=== PATIENT | female | born 1995 | race Caucasian/White ===

== ENCOUNTER 2020-01-19 18:32 | Outpatient (CLI) | payer OTHER, MEDICAID ==
[2020-01-19 19:16] LABS: APPEARANCE,URINE SLIGHTLY-CLOUDY; BILIRUBIN,URINE NEGATIVE (NEGATIVE); COLOR,URINE YELLOW; GLUCOSE, URINE NEGATIVE (NEGATIVE); KETONES,URINE NEGATIVE (NEGATIVE); LEUKOCYTE ESTERASE,URINE NEGATIVE (NEGATIVE); NITRITE,URINE NEGATIVE (NEGATIVE); PROTEIN,URINE NEGATIVE (NEGATIVE); URINE SPECIFIC GRAVITY 1.018; UROBILINOGEN,URINE NEGATIVE mg/dL (<2.0)
[2020-01-19 19:34] LABS: URINE AMPHETAMINES SCREEN NEGATIVE; URINE BARBITURATES SCREEN NEGATIVE; URINE BENZODIAZEPINES SCREEN NEGATIVE; URINE COCAINE SCREEN NEGATIVE; URINE MARIJUANA (THC) SCREEN NEGATIVE; URINE METHADONE SCREEN NEGATIVE; URINE PHENCYCLIDINE SCREEN NEGATIVE
--- NOTE | 2020-01-19 20:21 | Non Stress Test Report ---
Non Stress Test Datetime Report Generated by CPN: 01/19/2020 20:21 DEMOGRAPHIC EGA NST: 39.6 INDICATION Indication for Study (NST) Other: labor check URINE RESULTS Urine Protein, NST: Negative Urine Ketones - NST: Negative Urine Glucose - NST: Negative Urine Blood - NST: Positive MONITORING Monitor Explained: Monitor Explained; Test Explained; Patient Verbalized Understanding Time on Monitor: 01/19/2020 18:58 Time off Monitor: 01/19/2020 19:57 NST Duration: 59 NST INTERVENTIONS NST Interventions: PO Hydration Physician Notified NST: Higgins BABY A: [id number] BABY A Movement : Present Contraction Frequency : irregular FHR Baseline : 135 Accelerations : 15X15 Decelerations : None Variability : Moderate 6-25bpm NST Review: Meets Criteria for Reactive NST NST Review and Verified By : Elis Gaona RN NST Results: Reactive NST REPORT Report Trigger: Send Report
== END 2020-01-19 20:07 | disposition home or self-care (01) ==
LOC: LC 18:32
PROVIDERS: ATTEND Obstetrics & Gynecology
DX: O47.1 False labor at or after 37 completed weeks of gestation (principal); Z3A.39 39 weeks gestation of pregnancy
CPT/HCPCS: 59025; 80307; 81005; 84112

== ENCOUNTER 2020-01-24 01:28 | Outpatient (CLI) | payer OTHER, MEDICAID ==
[2020-01-24 02:22] LABS: APPEARANCE,URINE CLEAR; BILIRUBIN,URINE NEGATIVE (NEGATIVE); COLOR,URINE YELLOW; GLUCOSE, URINE NEGATIVE (NEGATIVE); KETONES,URINE NEGATIVE (NEGATIVE); LEUKOCYTE ESTERASE,URINE TRACE (NEGATIVE); NITRITE,URINE NEGATIVE (NEGATIVE); PROTEIN,URINE NEGATIVE (NEGATIVE); URINE SPECIFIC GRAVITY 1.015; UROBILINOGEN,URINE NEGATIVE mg/dL (<2.0)
[2020-01-24 02:48] LABS: URINE AMPHETAMINES SCREEN NEGATIVE; URINE BARBITURATES SCREEN NEGATIVE; URINE BENZODIAZEPINES SCREEN NEGATIVE; URINE COCAINE SCREEN NEGATIVE; URINE MARIJUANA (THC) SCREEN NEGATIVE; URINE METHADONE SCREEN NEGATIVE; URINE PHENCYCLIDINE SCREEN NEGATIVE
== END 2020-01-24 03:00 | disposition home or self-care (01) ==
LOC: LC 01:28
PROVIDERS: ATTEND Obstetrics & Gynecology
DX: O47.1 False labor at or after 37 completed weeks of gestation (principal); Z3A.40 40 weeks gestation of pregnancy
CPT/HCPCS: 59025; 80307; 81005; 84112

== ENCOUNTER 2020-01-25 13:30 | Inpatient (IN) | payer OTHER, MEDICAID ==
--- NOTE | 2020-01-25 13:42 | Non Stress Test Report ---
Non Stress Test Datetime Report Generated by CPN: 01/25/2020 13:42 DEMOGRAPHIC EGA NST: 40.4 INDICATION Indication for Study (NST) Other: Gestational age greater than 32 weeks VITAL SIGNS Temperature - NST: 97.0 Pulse - NST: 76 RESP - NST: 17 NBPSYS NST: 116 NBPDIA NST: 59 URINE RESULTS Urine Protein, NST: Negative Urine Ketones - NST: Negative Urine Glucose - NST: Negative Urine Blood - NST: Positive MONITORING Monitor Explained: Monitor Explained; Test Explained; Patient Verbalized Understanding Time on Monitor: 01/24/2020 01:49 Time off Monitor: 01/24/2020 02:54 NST Duration: 65 NST INTERVENTIONS NST Interventions: PO Hydration; Reposition Patient Physician Notified NST: Dr. Hutchins BABY A: [id number] BABY A Movement : Present Contraction Frequency : 6-9 FHR Baseline : 125 Accelerations : 15X15 Decelerations : None Variability : Moderate 6-25bpm NST Review: Meets Criteria for Reactive NST NST Review and Verified By : Vee Posadas RN NST Results: Reactive NST REPORT Report Trigger: Send Report
[2020-01-25 14:26] LABS: APPEARANCE,URINE CLOUDY; BILIRUBIN,URINE NEGATIVE (NEGATIVE); COLOR,URINE YELLOW; GLUCOSE, URINE NEGATIVE (NEGATIVE); KETONES,URINE NEGATIVE (NEGATIVE); LEUKOCYTE ESTERASE,URINE LARGE (NEGATIVE); NITRITE,URINE NEGATIVE (NEGATIVE); PROTEIN,URINE 30 mg/dL (NEGATIVE); URINE SPECIFIC GRAVITY 1.024; UROBILINOGEN,URINE NEGATIVE mg/dL (<2.0)
[2020-01-25 14:48] LABS: URINE AMPHETAMINES SCREEN NEGATIVE; URINE BARBITURATES SCREEN NEGATIVE; URINE BENZODIAZEPINES SCREEN NEGATIVE; URINE COCAINE SCREEN NEGATIVE; URINE MARIJUANA (THC) SCREEN NEGATIVE; URINE METHADONE SCREEN NEGATIVE; URINE PHENCYCLIDINE SCREEN NEGATIVE
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
[2020-01-25] MEDS ORDERED: PENICILLIN G POTASSIUM 5,000,000 UNIT in DEXTROSE 5%-WATER 100 ML IV ONE (14:58)
[2020-01-25] MEDS ORDERED: MISOPROSTOL 0.2 MG TABLET ONE (15:01)
[2020-01-25] MEDS ORDERED: OXYTOCIN 10 UNIT/ML VIAL ONE (15:01)
[2020-01-25] MEDS ORDERED: OXYTOCIN/0.9 % SODIUM CHLORIDE 30 UNIT/500 ML RTUINJ ONE (15:01)
[2020-01-25] MEDS ORDERED: LIDOCAINE 1% INJ-PF (10 MG/ML) 30 ML SDV ONE (15:01)
[2020-01-25] MEDS ORDERED: PENICILLIN G-K 5 MILLION UNIT VIAL ONE ×2 (15:02→19:45)
[2020-01-25] MEDS: RINGERS SOLUTION,LACTATED 1,000 ML IV PRN (15:14)
[2020-01-25] MEDS ORDERED: ROPIVACAINE HCL 0.2% INJ/PF (2 MG/ML) 20 ML SDV ONE (16:56)
[2020-01-25] MEDS ORDERED: EPHEDRINE SULFATE INJ 50 MG/1 ML AMPULE ONE (16:56)
[2020-01-25] MEDS ORDERED: FENTANYL/BUPIVACAINE/NS/PF 300 MCG/150 ML RTUINJ EPI ONE (16:56)
[2020-01-25 16:57] LABS: ABSOLUTE LYMPHOCYTES (AUTO) 1.7 10^3/uL (0.5-4.7); ABSOLUTE MONOCYTES (AUTO) 0.6 10^3/uL (0.1-1.4); ABSOLUTE NEUT (AUTO) 10.8 10^3/uL (1.7-8.2); BASOPHILS % (AUTO) 0.2 % (0-2); EOSINOPHILS % (AUTO) 0.2 % (0-6); HEMATOCRIT 37.1 % (36.0-47.0); HEMOGLOBIN 12.6 g/dL (12.0-15.5); LYMPHOCYTES % (AUTO) 13.2 % (13-45); MEAN CORPUSCULAR HEMOGLOBIN 30.4 pg (27.0-33.4); MEAN CORPUSCULAR HGB CONC 34.1 g/dL (32.0-36.0); MEAN CORPUSCULAR VOLUME 89 fl (80-97); MONOCYTES % (AUTO) 4.6 % (3-13); PLATELET COUNT 250 10^3/uL (150-450); RED BLOOD COUNT 4.16 10^6/uL (3.72-5.28); RED CELL DISTRIBUTION WIDTH 15.1 % (11.5-14.0); SEGMENTED NEUTROPHILS % (AUTO) 81.8 % (42-78); TOTAL CELLS COUNTED % (AUTO) 100 %; WHITE BLOOD COUNT 13.3 10^3/uL (4.0-10.5)
[2020-01-25] MEDS: PENICILLIN G POTASSIUM 2,500,000 UNIT in DEXTROSE 5%-WATER 50 ML IV SCH (19:54)
[2020-01-25] MEDS ORDERED: OXYTOCIN/0.9 % SODIUM CHLORIDE 30 UNIT/500 ML RTUINJ IV PRN (20:32)
[2020-01-25] MEDS ORDERED: ONDANSETRON HCL INJ/PF 4 MG/2 ML SDV ONE (21:44)
[2020-01-25] MEDS ORDERED: ONDANSETRON HCL INJ/PF 4 MG/2 ML SDV IV ONE (21:47)
[2020-01-26] MEDS ORDERED: PENICILLIN G-K 5 MILLION UNIT VIAL ONE ×3 (00:12→07:56)
[2020-01-26] MEDS: PENICILLIN G POTASSIUM 2,500,000 UNIT in DEXTROSE 5%-WATER 50 ML IV SCH ×7 (00:20→22:54)
[2020-01-26] MEDS ORDERED: GENTAMICIN SULFATE INJ 80 MG/2 ML VIAL ONE ×2 (00:56→09:12)
[2020-01-26] MEDS ORDERED: GENTAMICIN SULFATE INJ 80 MG/2 ML VIAL IM ONE (01:00)
[2020-01-26] MEDS ORDERED: DIPHENHYDRAMINE HCL 50 MG/ML VIAL ONE (01:13)
[2020-01-26] MEDS ORDERED: GENTAMICIN SULFATE INJ 80 MG/2 ML VIAL IV PRN ×2 (02:02→05:00)
[2020-01-26] MEDS ORDERED: DEXTROSE 5% IV ONE (02:30)
[2020-01-26] MEDS ORDERED: GENTAMICIN SULFATE IV ONE (02:30)
[2020-01-26] MEDS ORDERED: WATER IV ONE (02:30)
[2020-01-26] MEDS ORDERED: FENTANYL/BUPIVACAINE/NS/PF 300 MCG/150 ML RTUINJ EPI ONE (06:48)
[2020-01-26] MEDS ORDERED: ACETAMINOPHEN 325 MG TABLET PO ONE (08:34)
[2020-01-26] MEDS ORDERED: ACETAMINOPHEN 325 MG TABLET ONE (08:36)
[2020-01-26] MEDS: GENTAMICIN SULFATE 140 MG in DEXTROSE 5%-WATER 100 ML IV SCH ×2 (10:19→21:09)
[2020-01-26] MEDS ORDERED: CITRIC ACID/SODIUM CITRATE ORAL SOLN 15 ML UDCUP ONE (11:44)
[2020-01-26] MEDS ORDERED: CEFAZOLIN 2 GM/D5W RTU 2 GM/50 ML RTUPB IV ONE (11:44)
[2020-01-26] MEDS ORDERED: ONDANSETRON HCL INJ/PF 4 MG/2 ML SDV ONE (12:02)
[2020-01-26] MEDS ORDERED: KETOROLAC TROMETHAMINE INJ/PF 30 MG/1 ML SDV ONE (12:02)
[2020-01-26] MEDS ORDERED: OXYTOCIN 10 UNIT/ML VIAL ONE (12:02)
[2020-01-26] MEDS ORDERED: PHENYLEPHRINE HCL INJ/PF 10 MG/1 ML SDV ONE (12:02)
[2020-01-26] MEDS ORDERED: OXYTOCIN/0.9 % SODIUM CHLORIDE 30 UNIT/500 ML RTUINJ ONE (12:02)
[2020-01-26] MEDS ORDERED: LIDOCAINE 2% INJ-PF (20 MG/ML) 10 ML AMPUL ONE ×2 (12:02→12:53)
[2020-01-26] MEDS ORDERED: ACETAMINOPHEN 1,000 MG/100 ML RTUPB IV ONE (12:02)
[2020-01-26] MEDS ORDERED: FENTANYL CITRATE INJ/PF 100 MCG/2 ML AMPUL ONE (12:02)
[2020-01-26] MEDS: RINGERS SOLUTION,LACTATED 1,000 ML IV PRN ×2 (12:04→18:00)
[2020-01-26] MEDS ORDERED: ACETAMINOPHEN 325 MG TABLET PO PRN (13:31)
[2020-01-26] MEDS ORDERED: DIPH/PERTUSS(ACELL)/TETANUS VAC/PF 0.5 ML SYR (>=10YO) IM PRN (13:31)
[2020-01-26] MEDS ORDERED: SIMETHICONE 80 MG TAB.CHEW PO PRN (13:31)
[2020-01-26] MEDS ORDERED: OXYCODONE-ACETAMINOPHEN 5-325 MG TABLET PO PRN (13:31)
[2020-01-26] MEDS ORDERED: MEASLES,MUMPS&RUBELLA VACC/PF 0.5 ML VIAL SUBCUT PRN (13:31)
[2020-01-26] MEDS ORDERED: OXYTOCIN/0.9 % SODIUM CHLORIDE 30 UNIT/500 ML RTUINJ IV PRN (13:31)
[2020-01-26] MEDS ORDERED: PROMETHAZINE HCL INJ 25 MG/1 ML VIAL IV PRN (13:31)
[2020-01-26] MEDS ORDERED: HYDROMORPHONE HCL INJ/PF 2 MG/ML AMPULE IV PRN (13:31)
[2020-01-26] MEDS ORDERED: MORPHINE SULFATE 10 MG/ML INJ ONE (13:45)
--- NOTE | 2020-01-26 14:21 | Operative Report ---
Operative Report DATE OF SURGERY: 01/26/20 PREOPERATIVE DIAGNOSIS: Intrauterine at 40.6 wks. Arrest of descent in labor. Non-reassuring heart tracing POSTOPERATIVE DIAGNOSIS: Same as above. Terminal meconium OPERATION: Primary section SURGEON: KHURRAM COTTRELL ANESTHESIA: Spinal TISSUE REMOVED OR ALTERED: Placenta COMPLICATIONS: None ESTIMATED BLOOD LOSS: 800 INTRAOPERATIVE FINDINGS: Normal-appearing uterus bilateral fallopian tubes and ovaries. Amniotic fluid with terminal meconium noted. Viable male infant with head in left occiput posterior position deep in the pelvis. Apgars 7 and 9 at 1 and 5 minutes respectively PROCEDURE: IV fluids: per anesthesia record Urinary output: 250 cc blood-tinged urine. (Urine was blood-tinged at the beginning of the case when the Leal catheter was inserted. 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 Placenta grossly normal. Viable male infant with Apgars of 7 and 9, at 1 and 5 minutes respectively. Position: To recovery room in stable condition Description of procedure: The patient was taken to the operating room and spinal anesthesia was administered and found to be adequate. She was then placed on the OR table in the supine position with a slight leftward tilt. Patient was prepped and draped in usual sterile fashion. Ancef 2 gms was given IV prior to the procedure for infection prophylaxis . Timeout was taken. A Pfannenstiel skin incision was then made approximately 3 cm above the pubic symphysis and carried down to level the rectus fascia. The rectus fascia was then nicked in the midline with a scalpel and the fascial incision was extended laterally with use of curved Kirby scissors. The rectus fascia was then grasped with 2 Kocker clamps elevated and the underlying rectus muscle was dissected off both bluntly and sharply. Any bleeding controlled with cautery. The rectus muscles were then split in the midline and the peritoneum was entered. The peritoneal incision was then extended by manually stretching the peritoneum. The bladder blade was positioned. The bladder was noted to be out of harm's way. A scalpel was then used in the lower uterine for the hysterotomy, slowly until amniotomy was obtained a large amount of fluid was noted. The uterine incision was then manually stretched. The was noted to be in vertex postion, LOP -deep in the pelvis. Using surgeons hand deep in pelvis with the assistance of a sterile hand from below, the head was elevated and brought to the hysterotomy incision. The head then delivered with some difficulty and required a 2 cm vertical incision in the midline. After the head was delivered, the shoulders and the rest of the body followed immediately. The cord was cut clamped and the was handed off to the nurse awaiting. The placenta was manually delivered. Using a lap gauze the uterus was cleared of all clots and debris. The uterus was then exteriorized and a bladder blade was repositioned. The uterine incision was then closed with 0 Chromic suture in a running locked fashion. A second layer of the same suture was used in a running locked imbricated fashion. The uterine incision was inspected and noted to be hemostatic. Retractor was removed. The posterior aspect of the uterus was then inspected and anatomy was seen as above. The uterus was returned to its normal anatomic position within the abdominal cavity. Warm saline irrigation was used to clear all clots and debris from the abdomen. The uterine incision was inspected once more and a small area in the midline was oozing. A box stitch x2 was placed in this area and hemostasis was obtained the bladder blade was removed and the peritoneum was closed with 2-0 chromic in a running fashion. The rectus muscles were then reapproximated and the rectus fascia was closed with a #0 looped PDS in a running fashion. The subcutaneous tissue was then inspected and any bleeding was controlled with Bovie electrocautery. The subcutaneous tissue was then closed with 2-0 Plain Gut suture in a running fashion. The skin was then closed with 4-0 Monocryl in a running subcuticular fashion. The skin incision was then clean dried and Dermabond was applied over the skin incision. All instrument sponge and needle counts were correct x3 for the procedure the patient tolerated the procedure well. She will proceed to recovery room in stable condition. Urine appeared clear yellow by this time.
--- NOTE | 2020-01-26 14:23 | PDOC DELIVERY SUMMARY ---
Delivery Summary - Maternal Hx : I Hx Para: 0 Hx # Term Pregnancies: 0 Hx # Pregnancies: 0 Hx Total # of Abortions (Sponateous & Elective): 0 Number of Living Children: 0 Gestational Age: 40.6 - Delivery Presentation: Vertex Uterine Contraction Monitoring: External Pattern: Late Decels Support Person Present: Yes Location: OR : Emergency Placenta: Within Normal Limits Number of Vessels (Cord): 3 - Medications Type of Anesthesia:: Spinal - Delivery Personnel RN: OSMANY COCHRAN MD: KHURRAM COTTRELL
[2020-01-26] MEDS ORDERED: PENICILLIN G-K 5 MILLION UNIT VIAL IV SCH (16:00)
[2020-01-26] MEDS: OXYCODONE-ACETAMINOPHEN 5-325 MG TABLET PO PRN (17:22)
[2020-01-26] MEDS: DOCUSATE SODIUM 100 MG CAPSULE PO SCH (17:23)
[2020-01-26] MEDS: KETOROLAC TROMETHAMINE INJ/PF 30 MG/1 ML SDV IV SCH (17:23)
[2020-01-27] MEDS: OXYCODONE-ACETAMINOPHEN 5-325 MG TABLET PO PRN ×2 (02:14→08:13)
[2020-01-27] MEDS: GENTAMICIN SULFATE 140 MG in DEXTROSE 5%-WATER 100 ML IV SCH ×3 (02:22→18:14)
[2020-01-27] MEDS: KETOROLAC TROMETHAMINE INJ/PF 30 MG/1 ML SDV IV SCH (02:27)
[2020-01-27] MEDS: PENICILLIN G POTASSIUM 2,500,000 UNIT in DEXTROSE 5%-WATER 50 ML IV SCH ×5 (03:29→22:59)
[2020-01-27 07:38] LABS: HEMATOCRIT 28.2 % (36.0-47.0); MEAN CORPUSCULAR HEMOGLOBIN 30.8 pg (27.0-33.4); MEAN CORPUSCULAR HGB CONC 34.4 g/dL (32.0-36.0); MEAN CORPUSCULAR VOLUME 90 fl (80-97); PLATELET COUNT 207 10^3/uL (150-450); RED BLOOD COUNT 3.15 10^6/uL (3.72-5.28); RED CELL DISTRIBUTION WIDTH 15.4 % (11.5-14.0); WHITE BLOOD COUNT 16.3 10^3/uL (4.0-10.5)
[2020-01-27 07:39] LABS: HEMOGLOBIN 9.7 g/dL (12.0-15.5)
[2020-01-27] MEDS: DOCUSATE SODIUM 100 MG CAPSULE PO SCH ×2 (10:28→18:15)
[2020-01-27] MEDS: PRENATAL VITAMIN W DHA CAPSULE PO SCH (10:28)
--- NOTE | 2020-01-27 11:09 | PDOC PROGRESS REPORT ---
Subjective-OB Progress Note for:: 01/27/20 Subjective: Doing well, holding baby, not passing gas, eating and drinking, will ambulate more today Physical Exam (OB) Vital Signs: Temp Pulse Resp BP Pulse Ox 98.4 F 94 18 122/59 L 99 01/27/20 08:25 01/27/20 07:22 01/27/20 07:22 01/27/20 07:22 01/27/20 07:22 Intake & Output 01/26/20 01/27/20 01/28/20 06:59 06:59 06:59 Intake Total 1000 1207.0 Output Total 925 Balance 1000 282.0 Weight 95.254 kg - PIH/Pre-Eclampsia DTR's: 2 + Clonus: Negative Headache: Absent Epigastric Pain: No Visual Changes: No - Dressing Removed: Yes Incision: Open Closure Type: Surgical Glue - Maternal Morbidity 59. Maternal Morbidity (serious complications experinced by the mother associated with labor and delivery: None of the above - Lochia Lochia Amount: Small 10-25 ml Lochia Color: Rubra/Red - Abdomen Description: Tender, Soft Hernia Present: Yes Fundal Description: Firm Fundal Height: u/u - u/2 Objective-Diagnostic Laboratory: 01/27/20 07:13 01/27/20 07:13 WBC 16.3 H RBC 3.15 L Hgb 9.7 L D Hct 28.2 L MCV 90 MCH 30.8 MCHC 34.4 RDW 15.4 H Plt Count 207 Assessment and Plan(PN) - Assessment and Plan (1) GBS (group B Streptococcus carrier), +RV culture, currently Is this a current diagnosis for this admission?: Yes (2) Failure to progress in labor Is this a current diagnosis for this admission?: Yes (3) Status post primary low transverse section Is this a current diagnosis for this admission?: Yes (4) Anemia associated with acute blood loss Is this a current diagnosis for this admission?: Yes (5) Spontaneous rupture of amniotic membranes Is this a current diagnosis for this admission?: Yes - Time Spent with Patient Time with patient: Less than 15 minutes Medications reviewed and adjusted accordingly: Yes - Disposition Anticipated Discharge Disposition: Home, Self Care Anticipated Discharge Timeframe: within 24 hours
[2020-01-27] MEDS: IBUPROFEN 800 MG TABLET PO SCH ×3 (13:08→23:57)
[2020-01-27] MEDS ORDERED: PENICILLIN G-K 5 MILLION UNIT VIAL ONE (23:21)
[2020-01-28] MEDS: GENTAMICIN SULFATE 140 MG in DEXTROSE 5%-WATER 100 ML IV SCH ×2 (01:17→10:07)
[2020-01-28] MEDS: RINGERS SOLUTION,LACTATED 1,000 ML IV PRN (01:24)
[2020-01-28] MEDS: PENICILLIN G POTASSIUM 2,500,000 UNIT in DEXTROSE 5%-WATER 50 ML IV SCH ×2 (02:07→06:06)
[2020-01-28] MEDS ORDERED: PENICILLIN G-K 5 MILLION UNIT VIAL ONE (05:52)
[2020-01-28] MEDS: IBUPROFEN 800 MG TABLET PO SCH ×2 (06:01→11:23)
[2020-01-28 07:57] VITALS: BP 127/67
[2020-01-28] MEDS: PRENATAL VITAMIN W DHA CAPSULE PO SCH (09:40)
[2020-01-28] MEDS: DOCUSATE SODIUM 100 MG CAPSULE PO SCH (09:41)
--- NOTE | 2020-01-28 10:26 | PDOC DISCHARGE SUMMARY ---
Impression - Admit/DC Date/PCP Admission Date/Primary Care Provider: 01/25/20 14:59 KHURRAM COTTRELL MD Discharge Date: 01/28/20 - Discharge Diagnosis (1) Anemia associated with acute blood loss Is this a current diagnosis for this admission?: Yes (2) Failure to progress in labor Is this a current diagnosis for this admission?: Yes (3) GBS (group B Streptococcus carrier), +RV culture, currently Is this a current diagnosis for this admission?: Yes (4) Spontaneous rupture of amniotic membranes Is this a current diagnosis for this admission?: Yes (5) Status post primary low transverse section Is this a current diagnosis for this admission?: Yes - Additional Information Resuscitation Status: Full Code Discharge Diet: Regular Discharge Activity: Balance Activity w/Rest, No Driving, No Lifting Over 10 Pounds, No Lifting/Push/Pulling, Pelvic Rest, No tub bath Referrals: KHURRAM COTTRELL MD [Primary Care Provider] - Home Medications: Vit No.130/Iron/Folic [ Vitamins] 1 each PO DAILY 01/19/20 HPI Reason(s) for Admission: Onset of Labor, PROM Procedures: NST Intrapartum Procedure(s): : Low Cervical, Transverse Hospital Course 59. Maternal Morbidity (serious complications experinced by the mother associated with labor and delivery: None of the above Results Laboratory Results: WBC 16.3 10^3/uL (4.0-10.5) H 01/27/20 07:13 RBC 3.15 10^6/uL (3.72-5.28) L 01/27/20 07:13 Hgb 9.7 g/dL (12.0-15.5) L D 01/27/20 07:13 Hct 28.2 % (36.0-47.0) L 01/27/20 07:13 MCV 90 fl (80-97) 01/27/20 07:13 MCH 30.8 pg (27.0-33.4) 01/27/20 07:13 MCHC 34.4 g/dL (32.0-36.0) 01/27/20 07:13 RDW 15.4 % (11.5-14.0) H 01/27/20 07:13 Plt Count 207 10^3/uL (150-450) 01/27/20 07:13 Lymph % (Auto) 13.2 % (13-45) 01/25/20 16:26 [place] % (Auto) 4.6 % (3-13) 01/25/20 16:26 Eos % (Auto) 0.2 % (0-6) 01/25/20 16:26 Baso % (Auto) 0.2 % (0-2) 01/25/20 16:26 Absolute Neuts (auto) 10.8 10^3/uL (1.7-8.2) H 01/25/20 16:26 Absolute Lymphs (auto) 1.7 10^3/uL (0.5-4.7) 01/25/20 16:26 Absolute Monos (auto) 0.6 10^3/uL (0.1-1.4) 01/25/20 16:26 Absolute Eos (auto) 0.0 10^3/uL (0.0-0.6) 01/25/20 16: Absolute Basos (auto) 0.0 10^3/uL (0.0-0.2) 01/25/20 16: Seg Neutrophils % 81.8 % (42-78) H 01/25/20 16:26 Urine Color YELLOW 01/25/20 13:45 Urine Appearance CLOUDY 01/25/20 13:45 Urine pH 6.0 (5.0-9.0) 01/25/20 13:45 Ur Specific [place] 1.024 01/25/20 13:45 Urine Protein 30 mg/dL (NEGATIVE) H 01/25/20 13:45 Urine Glucose (UA) NEGATIVE mg/dL (NEGATIVE) 01/25/20 13:45 Urine Ketones NEGATIVE mg/dL (NEGATIVE) 01/25/20 13:45 Urine Blood LARGE (NEGATIVE) H 01/25/20 13:45 Urine Nitrite NEGATIVE (NEGATIVE) 01/25/20 13:45 Urine Bilirubin NEGATIVE (NEGATIVE) 01/25/20 13:45 Urine Urobilinogen NEGATIVE mg/dL (<2.0) 01/25/20 13:45 Ur Leukocyte Esterase LARGE (NEGATIVE) H 01/25/20 13:45 Urine Ascorbic Acid NEGATIVE (NEGATIVE) 01/25/20 13:45 Membranes Rupture POSITIVE (NEGATIVE) H 01/25/20 13:45 Urine Opiates Screen NEGATIVE 01/25/20 13:45 Urine Methadone Screen NEGATIVE 01/25/20 13:45 Ur Barbiturates Screen NEGATIVE 01/25/20 13:45 Ur Phencyclidine Scrn NEGATIVE 01/25/20 13:45 Ur Amphetamines Screen NEGATIVE 01/25/20 13:45 U Benzodiazepines Scrn NEGATIVE 01/25/20 13:45 Urine Cocaine Screen NEGATIVE 01/25/20 13:45 U Marijuana (THC) Screen NEGATIVE 01/25/20 13:45 RPR NONREACTIVE (NONREACTIVE) 01/25/20 16:26 Blood Type O POSITIVE 01/25/20 16:26 Antibody Screen NEGATIVE 01/25/20 16:26 Plan Plan of Treatment: f/u at [facility] Tuesday for incision check Time Spent: Less than 30 Minutes
== END 2020-01-28 12:28 | disposition home or self-care (01) | DRG 786 ==
LOC: LC 13:30 → LR 14:59 → 2S 01-26 16:28
PROVIDERS: ADMIT Student in an Organized Health Care Education/Training Program; ATTEND Student in an Organized Health Care Education/Training Program
PROC: 10D00Z1 Extraction of Products of Conception, Low, Open Approach (ICD-10-PCS; principal; 2020-01-25)
PROC: 3E0234Z Introduction of Serum, Toxoid and Vaccine into Muscle, Percutaneous Approach (ICD-10-PCS; 2020-01-26)
DX: O99.824 Streptococcus B carrier state complicating childbirth (principal); O41.1230 Chorioamnionitis, third trimester, not applicable or unspecified; D62 Acute posthemorrhagic anemia; O90.81 Anemia of the puerperium; O32.4XX0 Maternal care for high head at term, not applicable or unspecified; O76 Abnormality in fetal heart rate and rhythm complicating labor and delivery; Z23 Encounter for immunization; Z37.0 Single live birth; Z3A.40 40 weeks gestation of pregnancy; Z88.6 Allergy status to analgesic agent
CPT/HCPCS: 1967; 1968; 36415; 80307; 81005; 84112; 85025; 85027; 86592; 86850; 86900; 86901; 88307; 94760; 94799; 99140; J0131; J0690; J1200; J1580; J1885; J2270; J2370; J2405; J2540; J2590; J2795; J3010; J3490; J7060; J7120